=== PATIENT | male | born 1995 | race Two or more races ===

== ENCOUNTER 2018-10-05 17:04 | Emergency (ER) | payer OTHER ==
[2018-10-05 17:23] VITALS: BP 150/78
[2018-10-05] MEDS ORDERED: LIDOCAINE 1%/EPINEPHRINE INJ 20 ML VIAL INJ ONE (20:12)
[2018-10-05] MEDS ORDERED: DIPH/PERTUSS(ACELL)/TETANUS VAC/PF 0.5 ML SYR (>=10YO) IM ONE (20:13)
--- NOTE | 2018-10-05 21:26 | RADIOLOGY REPORT (SQ) ---
2 VIEWS OF THE LEFT HUMERUS HISTORY: Joint pain. COMPARISON: None. FINDINGS: No acute fracture is seen. The joint spaces are preserved. There is a soft tissue laceration overlying the mid humerus soft tissues with bandage material. No radiopaque foreign body is identified. IMPRESSION: No acute fracture or dislocation.
[2018-10-05] MEDS ORDERED: IBUPROFEN 600 MG TABLET PO ONE (21:49)
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
[2018-10-05] MEDS ORDERED: ACETAMINOPHEN 325 MG TABLET PO ONE (21:50)
== END 2018-10-05 22:30 ==
LOC: EDSEX → ER 17:04
DX: S41.112A Laceration without foreign body of left upper arm, initial encounter (principal); X99.1XXA Assault by knife, initial encounter; Z63.0 Problems in relationship with spouse or partner
CPT/HCPCS: 99283; 90471; 73060; 90715; 12002; L3650; J3490